=== PATIENT | female | born 1955 | race Caucasian/White ===

== ENCOUNTER 2018-04-19 08:44 | Emergency (ER) | payer OTHER ==
[~2018-04-19] VITALS: Ht 157.5 cm; Wt 120.0 kg
[~2018-04-19 08:44] MED LIST: ASPIRIN CHEWABL81 MG PO; BACTRIM DS1 TAB PO; CEPHALEXIN500 MG PO; DIABETA5 MG PO; FLEXERIL PO; GLUCOTROL5 MG PO; IBUPROFEN600 MG PO; LEVOTHYROXIN50 MCG PO; LEVOTHYROXIN75 MCG PO; LOPID600 MG PO; LORTAB 10-325 M1 TAB PO; LORTAB 1010 MG PO; METFORMIN HCL850 MG PO; METFORMIN500 MG PO; NO; NORCO1 TA1 PO; NOVOLOG MIX100 U/ML SC; SYNTHROID50 MCG PO; ULTRAM50 M1 PO
[2018-04-19] MEDS ORDERED: TORADOL PO (09:48)
[2018-04-19 09:55] VITALS: BP 122/65
[2018-04-19] MEDS ORDERED: ENALAPRIL2.5 MG PO (10:13)
[2018-04-19] MEDS ORDERED: LOPID600 MG PO (10:13)
[2018-04-19] MEDS ORDERED: LASIX 40 MG TAB40 MG PO (10:14)
[2018-04-19] MEDS ORDERED: GABAPENTIN100 MG PO (10:15)
[2018-04-19] MEDS ORDERED: LANTUS100 UNIT/M SC (10:16)
== END 2018-04-19 10:05 | disposition home or self-care (01) ==
LOC: ED 08:44
DX: S20.211A Contusion of right front wall of thorax, initial encounter (principal); I10 Essential (primary) hypertension; E11.9 Type 2 diabetes mellitus without complications; E78.5 Hyperlipidemia, unspecified; W01.0XXA Fall on same level from slipping, tripping and stumbling without subsequent striking against object, initial encounter; Y93.89 Activity, other specified; Y92.524 Gas station as the place of occurrence of the external cause; Z86.73 Personal history of transient ischemic attack (TIA), and cerebral infarction without residual deficits

== ENCOUNTER 2018-06-27 09:20 | Outpatient (RCR) | payer OTHER ==
[~2018-06-27 09:20] MED LIST changes: +ENALAPRIL2.5 MG PO; +GABAPENTIN100 MG PO; +LANTUS100 UNIT/M SC; +LASIX 40 MG TAB40 MG PO; +TORADOL PO
== END 2018-06-27 12:00 | disposition home or self-care (01) ==
LOC: OPWC 09:20
PROVIDERS: ATTEND Surgery
DX: E11.621 Type 2 diabetes mellitus with foot ulcer (principal); L97.519 Non-pressure chronic ulcer of other part of right foot with unspecified severity; L97.512 Non-pressure chronic ulcer of other part of right foot with fat layer exposed; S80.821A Blister (nonthermal), right lower leg, initial encounter; E11.40 Type 2 diabetes mellitus with diabetic neuropathy, unspecified; E11.65 Type 2 diabetes mellitus with hyperglycemia; R60.9 Edema, unspecified; A04.9 Bacterial intestinal infection, unspecified
CPT/HCPCS: A6021; A6210

== ENCOUNTER 2018-07-31 17:43 | Emergency (ER) | payer OTHER ==
[~2018-07-31] VITALS: Ht 157.5 cm; Wt 105.0 kg
[2018-07-31] MEDS ORDERED: BAYER CHEWABLE81 MG PO (18:27)
[2018-07-31] MEDS ORDERED: TRAMADOL HYDROC50 MG PO (19:33)
[2018-07-31 20:07] VITALS: BP 125/61
== END 2018-07-31 20:07 | disposition home or self-care (01) ==
LOC: ED 17:43
DX: S42.292A Other displaced fracture of upper end of left humerus, initial encounter for closed fracture (principal); I10 Essential (primary) hypertension; E11.9 Type 2 diabetes mellitus without complications; W01.0XXA Fall on same level from slipping, tripping and stumbling without subsequent striking against object, initial encounter; Y92.008 Other place in unspecified non-institutional (private) residence as the place of occurrence of the external cause